=== PATIENT | male | born 1945 | race Caucasian/White ===

== ENCOUNTER 2018-07-17 23:42 | Emergency (ER) | payer MEDICARE, OTHER ==
[~2018-07-17] VITALS: Ht 170.2 cm; Wt 63.5 kg
[~2018-07-17 23:42] MED LIST: ACETAMINOPHEN500 M1 PO; BAYER CHEWABLE81 MG PO; FISH OIL 1,2001 CA1 PO; FLOMAX0.4 MG PO; LISINOPRIL5 MG PO; MOBIC7.5 MG PO; MULTI-DAY VITAM1 TAB PO; SAW PALMETTO450 MG PO; VITAMIN E400 UNI2 PO; ZOLOFT50 MG PO; iron PO
[2018-07-17 23:45] VITALS: Ht 170.2 cm; Wt 63.5 kg
[2018-07-18 00:21] LABS: BASOPHILS 0.1 % (0-2); EOSINOPHILS 5.5 % (0-7); HEMATOCRIT 35.6 % (42.0-54.0); HEMOGLOBIN 12.1 g/dL (13.5-17.5); IMMATURE GRANULOCYTES 0.4 % (0-5); LYMPHOCYTES 23.5 % (15-50); MCH 29.3 pg (26.0-34.0); MCV 86.2 fL (80.0-100.0); MEAN PLATELET VOLUME 9.4 fL (7.4-10.4); MONOCYTES 8.1 % (2-11); NEUTROPHILS 62.4 % (40-80); PLATELET COUNT 244 10x3/uL (130-400); RBC 4.13 10x6/uL (4.20-6.10); RDW 12.9 % (11.5-14.5); WBC 7.5 10x3/uL (4.8-10.8)
[2018-07-18 00:27] LABS: AMORPHOUS SEDIMENT <1+ /lpf (NONE SEEN); APPEARANCE CLOUDY (CLEAR); BACTERIA MODERATE /hpf (NONE SEEN); BILIRUBIN NEGATIVE (NEGATIVE); COLOR YELLOW (YELLOW); EPITHELIAL CELLS NSEEN /hpf (0-5); GLUCOSE NEGATIVE (NEGATIVE); KETONE NEGATIVE (NEGATIVE); NITRITE POSITIVE (NEGATIVE); PROTEIN 1+ mg/dL (NEGATIVE); RED CELLS - URINE 25-50 /hpf (0-5); UROBILINOGEN NORMAL (NORMAL)
[2018-07-18 00:29] LABS: CALC OSMOLALITY 266 mosm/kg (275-300); CALCIUM 8.8 mg/dL (8.5-10.1); CARBON DIOXIDE 25.8 mmol/L (21.0-32.0); CHLORIDE - SERUM 99 mmol/L (98-107); CREATININE - SERUM 0.6 mg/dL (0.6-1.3); GLUCOSE 113 mg/dL (74-106); POTASSIUM - SERUM 4.2 mmol/L (3.5-5.1); SODIUM 132 mmol/L (136-145); UREA NITROGEN 15 mg/dL (7-18); eGFR NON AFRICAN AMERICAN > 90 mL/min (90-120)
[2018-07-18] MEDS ORDERED: SULFAMETHOXAZOL1 TA3 PO (00:55)
[2018-07-18 02:23] VITALS: BP 118/77
== END 2018-07-18 02:25 ==
LOC: D.ER 23:42
PROVIDERS: Emergency Medicine
DX: T83.9XXA Unspecified complication of genitourinary prosthetic device, implant and graft, initial encounter (principal); N39.0 Urinary tract infection, site not specified

== ENCOUNTER 2019-04-16 06:51 | Inpatient (IN) | payer MEDICARE, OTHER ==
[~2019-04-16] VITALS: Ht 170.2 cm; Wt 68.3 kg
[~2019-04-16 06:51] MED LIST changes: +SULFAMETHOXAZOL1 TA3 PO
[2019-04-16 07:27] LABS: BASOPHILS 0.1 % (0-2); EOSINOPHILS 0.3 % (0-7); HEMATOCRIT 32.2 % (42.0-54.0); IMMATURE GRANULOCYTES 0.2 % (0-5); LYMPHOCYTES 7.4 % (15-50); MCH 29.3 pg (26.0-34.0); MCHC 34.2 g/dL (31.0-37.0); MCV 85.9 fL (80.0-100.0); MONOCYTES 5.2 % (2-11); NEUTROPHILS 86.8 % (40-80); PLATELET COUNT 214 10x3/uL (130-400); RBC 3.75 10x6/uL (4.20-6.10); RDW 13.4 % (11.5-14.5); WBC 11.8 10x3/uL (4.8-10.8)
[2019-04-16 07:34] LABS: CALC OSMOLALITY 259 mosm/kg (275-300); CALCIUM 8.3 mg/dL (8.5-10.1); CHLORIDE - SERUM 94 mmol/L (98-107); CREATININE - SERUM 0.6 mg/dL (0.6-1.3); GLUCOSE 117 mg/dL (74-106); POTASSIUM - SERUM 3.7 mmol/L (3.5-5.1); SODIUM 129 mmol/L (136-145); UREA NITROGEN 12 mg/dL (7-18); eGFR NON AFRICAN AMERICAN > 90 mL/min (90-120)
[2019-04-16 07:46] LABS: ALBUMIN 3.2 g/dL (3.4-5.0); ALKALINE PHOSPHATASE 54 U/L (46-116); ALT (SGPT) 12 U/L (10-68); AMYLASE - SERUM 28 U/L (25-115); BILIRUBIN - TOTAL 0.53 mg/dL (0.2-1.3); MAGNESIUM - SERUM 1.5 mg/dL (1.8-2.4); TROPONIN-I < 0.017 ng/mL (0.000-0.060)
[2019-04-16 07:52] LABS: LIPASE 38 U/L (73-393)
[2019-04-16 07:59] VITALS: BP 98/59
--- NOTE | 2019-04-16 09:55 | NUR ---
URINE SPECIMEN COLLECTED FROM SUPRAPUBIC CATHETER AND SENT TO LAB VIA TUBE SYSTEM.
[2019-04-16 10:00] VITALS: BP 99/59
--- NOTE | 2019-04-16 10:04 | NUR ---
PT'S [facility] NURSE, WALDEMAR RODRIGUEZ AT BEDSIDE. HER PHONE NUMBER IS [phone]
[2019-04-16 10:16] LABS: APPEARANCE CLOUDY (CLEAR); BILIRUBIN NEGATIVE (NEGATIVE); COLOR YELLOW (YELLOW); GLUCOSE NEGATIVE (NEGATIVE); KETONE SMALL mg/dL (NEGATIVE); NITRITE POSITIVE (NEGATIVE); PROTEIN 1+ mg/dL (NEGATIVE); UROBILINOGEN NORMAL (NORMAL); WHITE CELLS - URINE 25-50 /hpf (NEGATIVE)
[2019-04-16 10:18] LABS: BACTERIA MANY /hpf (NEGATIVE); EPITHELIAL CELLS 0-5 /hpf (0-5); MUCUS <1+ /lpf (NONE SEEN)
--- NOTE | 2019-04-16 10:30 | NUR ---
SPOKE WITH PT'S NURSE, DURGA SURESH, AND UPDATED ON PT POC.
--- NOTE | 2019-04-16 11:37 | NUR ---
SPOKE WITH PT'S HOSPICE NURSE AND UPDATED ON POC. SHE WAS INFORMED PT WILL BE ADMITTED TO HOSPITAL.
--- NOTE | 2019-04-16 13:00 | NUR ---
NEW PATIENT ADMIT FROM ER VIA STRETCHER ACCOMPANIED BY HOSPITAL PERSONNEL. PATIENT TRANSFERRED TO HOSPITAL BED WITH ASSISTANCE. PATIENT IS AWAKE, ALERT AND ORIENTED X 4. PATIENT DENIES ANY PAIN OR NEEDS. 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 PATIENT IS BEDFAST. PATIENT HAS SUPR PUBIC CATHETER INTACT WITH CLEAR, GOLD URINE. 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 WILL CONTINUE WITH PLAN OF CARE. SR UP X 2 BED IN LOW POSITION AND CALL 8T IN REACH.
--- NOTE | 2019-04-16 14:05 | MORECARE ---
CASE MANAGEMENT DISCHARGE SUMMARY PATIENT: JESI BONILLA UNIT: [id number] ADM DATE: 04/16/19 AGE: 74 : 43 SEX: M ROOM/BED: D.9682 AUTHOR: CARMEN,DOC PHYSICIAN: REFERRING PHYSICIAN: KASSANDRA TORRE MD DATE OF SERVICE: 04/16/19 Discharge Plan Patient Name: JESI BONILLA Facility: [facility]:[place] : 1945 Planned Disposition: Longterm Facility Anticipated Discharge Date: 04/18/19 Discharge Date: Expected LOS: 2 Initial Reviewer: [email or web address] Initial Review Date: 04/16/2019 Generated: 04/16/19 3:04 pm DCP- Discharge Planning Updated by [email or web address]: Karen Cervantes on 04/16/19 1:[address] DC PLAN: Return to jail care at [facility]. ANTICIPATED DC NEEDS: Denied known dc needs. CM met with patient and his to complete initial dc planning assessment. CM educated patient on the CM role and verbal consent given by patient to complete assessment. Patient is a resident at [facility]. He will return to the facility at time of discharge. Patient agrees this is a safe discharge plan. Transportation provider at discharge will be arranged by [facility]. He is only able to sit up in a Alta Chair. He requires a ramez lift to get from bed to alta chair. CM will continue to follow and will assist as needed with dc plans/needs. Karen Cervantes RN, [facility] DCPIA - Discharge Planning Initial Assessment Updated by [email or web address]: Karen Cervantes on 04/16/19 1:59 pm * Is the patient Alert and Oriented? Yes * How many steps to enter\exit or inside your home? None * PCP [facility] * Pharmacy [facility] * Preadmission Environment [facility] * Facility Name [facility] * ADLs Total Dependent * Equipment Ramez Lift * Other Equipment Alta Chair * List name and contact numbers for known caregivers / representatives who currently or will assist patient after discharge: Savannah Bonilla - [facility] - [phone] * Verbal permission to speak to the caregivers and representatives has been obtained from the patient. Yes * Additional services required to return to the preadmission environment? No * Can the patient safely return to the preadmission environment? Yes * Has this patient been hospitalized within the prior 30 days at any hospital? No Patient Name: JESI BONILLA Page [id number] at 1405 All edits/amendments must be made on the electronic document DICTATION DATE: 04/16/191403 CATTLE TRADER: JENNI 04/16/191403 RPT#: [id number] DC DATE: STATUS: ADM IN [facility] [address] [place] [address] END OF REPORT
[2019-04-16 15:13] VITALS: BP 106/74; Ht 170.2 cm; Wt 68.3 kg
[2019-04-16 15:38] VITALS: BP 84/54
--- NOTE | 2019-04-16 15:43 | NUR ---
PAGED AND SPOKE WITH DR TORRE. INFORMED DR OF SUPRA PUBIC CATHETER LEAKING AT SITE. NEW ORDERS RECEIVED TO CONSULT UROLOGY. REPORTED LOW BP . NEW ORDER RECEIVED. PATIENT DENIES ANY PAIN OR NEEDS. WILL CONTINUE TO MONITOR. SR UP X 2 BED IN LOW POSITION AND CALL LIGHT IN REACH.
--- NOTE | 2019-04-16 16:24 | NUR ---
DR STONE IN ROOM. SUPRA PUBIC CATHETER CHANGED . PATIENT TOLERATED WELL. PATIENT DID URINATE THRU PENIS WELL. PATIENT CLEANED, PENNY CARE PERFORMED AND LINENS CHANGED. WILL CONTINUE WITH PLAN OF CARE. SR UP X 2 BED IN LOW POSITION AND CALL LIGHT IN REACH.
--- NOTE | 2019-04-16 18:21 | NUR ---
ASSISTED PATIENT WITH MEAL. PATIENT CONSUMED 80%. PATIENT IS UNCHANGED AND DENIES ANY NEEDS OR PAIN. WILL CONTINUE TO MONITOR. SR UP X 2 BED IN LOW POSITION AND CALL LIGHT IN REACH.
[2019-04-16 20:30] VITALS: BP 97/74
--- NOTE | 2019-04-16 21:37 | NUR ---
BED LOW AND LOCKED CALL LIGHT POSITIONED WHERE PT CAN USE NO NEEDS AT THIS TIME
--- NOTE | 2019-04-17 03:21 | NUR ---
I have reviewed this patient and I concur with the Shift Assessment completed by the Licensed Practical Nurse today this shift.
[2019-04-17 04:30] VITALS: BP 122/85
--- NOTE | 2019-04-17 07:10 | NUR ---
PATIENT LAYING IN BED ON BACK WITH EYES CLOSED AND BREATHING EVENLY. VSS. WILL CONTINUE WITH PLAN OF CARE. SR UP X 2 BED IN LOW POSITION AND CALL LIGHT IN REACH.
[2019-04-17 08:00] VITALS: BP 117/78
--- NOTE | 2019-04-17 08:36 | MORECARE ---
CASE MANAGEMENT DISCHARGE SUMMARY PATIENT: JESI BONILLA UNIT: [id number] ADM DATE: 04/16/19 AGE: 74 : 43 SEX: M ROOM/BED: D.8702 AUTHOR: CARMEN,DOC PHYSICIAN: REFERRING PHYSICIAN: KASSANDRA TORRE MD DATE OF SERVICE: 04/17/19 Discharge Plan Patient Name: JSEI BONILLA Facility: [facility]:[place] : 1945 Planned Disposition: Nursing Facility [facility] Cert Anticipated Discharge Date: 04/18/19 Discharge Date: Expected LOS: 2 Initial Reviewer: [email or web address] Initial Review Date: 04/16/2019 Generated: 04/17/19 9:36 am DCP- Discharge Planning Updated by [email or web address]: Karen Cervantes on 04/16/19 1:[address] DC PLAN: Return to jail care at [facility]. ANTICIPATED DC NEEDS: Denied known dc needs. CM met with patient and his to complete initial dc planning assessment. CM educated patient on the CM role and verbal consent given by patient to complete assessment. Patient is a resident at [facility]. He will return to the facility at time of discharge. Patient agrees this is a safe discharge plan. Transportation provider at discharge will be arranged by [place]. He is only able to sit up in a Alta Chair. He requires a ramez lift to get from bed to alta chair. CM will continue to follow and will assist as needed with dc plans/needs. Karen Cervantes RN, [facility] DCPIA - Discharge Planning Initial Assessment Updated by [email or web address]: Karen Cervantes on 04/16/19 1:59 pm * Is the patient Alert and Oriented? Yes * How many steps to enter\exit or inside your home? None * PCP [facility] * Pharmacy [facility] * Preadmission Environment [facility] * Facility Name [facility] * ADLs Total Dependent * Equipment Ramez Lift * Other Equipment Alta Chair * List name and contact numbers for known caregivers / representatives who currently or will assist patient after discharge: Savannah Bonilla - [facility] - [phone] * Verbal permission to speak to the caregivers and representatives has been obtained from the patient. Yes * Additional services required to return to the preadmission environment? No * Can the patient safely return to the preadmission environment? Yes * Has this patient been hospitalized within the prior 30 days at any hospital? No Last DP export: 04/16/19 1:05 p Patient Name: JESI BONILLA Page [id number] at 0836 All edits/amendments must be made on the electronic document DICTATION DATE: 04/17/19835 CHEMICAL PROJECT ENGINEER: JENNI 04/17/19835 RPT#: [id number] DC DATE: STATUS: ADM IN [facility] [address] [place] [address] END OF REPORT
[2019-04-17 09:08] LABS: BASOPHILS 0.1 % (0-2); EOSINOPHILS 4.2 % (0-7); HEMOGLOBIN 11.4 g/dL (13.5-17.5); IMMATURE GRANULOCYTES 0.4 % (0-5); LYMPHOCYTES 14.6 % (15-50); MCH 29.2 pg (26.0-34.0); MCHC 33.5 g/dL (31.0-37.0); MEAN PLATELET VOLUME 9.1 fL (7.4-10.4); MONOCYTES 5.6 % (2-11); NEUTROPHILS 75.1 % (40-80); PLATELET COUNT 212 10x3/uL (130-400); RBC 3.91 10x6/uL (4.20-6.10); RDW 13.6 % (11.5-14.5)
[2019-04-17 09:11] LABS: WBC 8.3 10x3/uL (4.8-10.8)
[2019-04-17 09:27] LABS: CALC OSMOLALITY 261 mosm/kg (275-300); CALCIUM 8.2 mg/dL (8.5-10.1); CARBON DIOXIDE 28.2 mmol/L (21.0-32.0); CHLORIDE - SERUM 96 mmol/L (98-107); CREATININE - SERUM 0.7 mg/dL (0.6-1.3); GLUCOSE 144 mg/dL (74-106); MAGNESIUM - SERUM 1.5 mg/dL (1.8-2.4); PHOSPHOROUS 1.8 mg/dL (2.5-4.9); POTASSIUM - SERUM 3.6 mmol/L (3.5-5.1); SODIUM 130 mmol/L (136-145); eGFR NON AFRICAN AMERICAN > 90 mL/min (90-120)
[2019-04-17 09:28] LABS: UREA NITROGEN 7 mg/dL (7-18)
[2019-04-17 12:00] VITALS: BP 130/85
--- NOTE | 2019-04-17 13:32 | NUR ---
PATIENT LAYING IN BED WITH HOB ELEVATED 30 DEGREES. PATIENT WATCHING TV. PATIENT DENIES ANY NEEDS OR PAIN. PATIENT IS STABLE AND VSS. WILL CONTINUE TO MONITOR. SR UPX 2 BED IN LOW POSITION AND CALL LIGHT IN REACH.
[2019-04-17 16:00] VITALS: BP 139/62
--- NOTE | 2019-04-17 16:09 | NUR ---
PATIENT LAYING IN BED ON BACK AWAKE, ALERT AND ORIENTED X 4. PATIENT WATCHING TV. PATIENT DENIES ANY NEEDS OR PAIN. WILL CONTINUE TO MONITOR. SR UP X 2 BED IN LOW POSITION AND CALL LIGHT IN REACH.
[2019-04-17 20:00] VITALS: BP 115/68
--- NOTE | 2019-04-17 20:32 | NUR ---
REPORT AND INITIAL ROUNDS COMPLETED. PT RESTING IN BED. NO DISTRESS. CPOC.
--- NOTE | 2019-04-17 21:09 | NUR ---
BEDTIME MEDS GIVEN. IVF INFUSING. PT WATCHING TV. CALL LIGHT IN HAND.
[2019-04-18] VITALS: BP 141/91
--- NOTE | 2019-04-18 02:37 | NUR ---
REQUESTED PAIN PILL PROVIDED FOR DISCOMFORT TO LEFT LEG. PT REPOSITIONED. WATER PROVIDED. ASSISTED TO TURN ON TV AND "GET COMFORTABLE". CPOC. CALL LIGHT IN HAND.
[2019-04-18 04:00] VITALS: BP 131/76
[2019-04-18 08:00] VITALS: BP 160/100
--- NOTE | 2019-04-18 09:05 | NUR ---
ALERT AND ORIENTED. NS AT 125 RIGHT HAND,. NO TELEMERTY CONTRACTURES TO BOTH LEGS AND LEFT ARM. PT HAS A COLOSTOMY AND SUPRA PUBIC. DENIES ANY NEEDS. WILL MONITOR
[2019-04-18] MEDS ORDERED: ROCEPHIN 1 GM/D51 G1 IM (15:05)
[2019-04-18] MEDS ORDERED: CARAFATE1 G PO (15:06)
[2019-04-18] MEDS ORDERED: PROTONIX40 MG PO (15:06)
--- NOTE | 2019-04-18 16:45 | NUR ---
PT DISCHARGED. IV DCD WITH TIP INTACT. TO [facility] FROM DC IN [facility].
--- NOTE | 2019-04-18 17:24 | MORECARE ---
CASE MANAGEMENT DISCHARGE SUMMARY PATIENT: JESI BONILLA UNIT: [id number] ADM DATE: 04/16/19 AGE: 74 : 43 SEX: M ROOM/BED: D.7412 AUTHOR: CARMEN,DOC PHYSICIAN: REFERRING PHYSICIAN: KASSANDRA TORRE MD DATE OF SERVICE: 04/18/19 Discharge Plan Patient Name: JESI BONILLA Facility: [facility]:[place] : 1945 Planned Disposition: Nursing Facility [facility] Cert Anticipated Discharge Date: 04/18/19 Discharge Date: 04/18/2019 Expected LOS: 2 Initial Reviewer: [email or web address] Initial Review Date: 04/16/2019 Generated: 04/18/19 6:24 pm Comments DCP- Discharge Planning Updated by [email or web address]: Oumou Driscoll on 04/18/19 4:[address] DC PLAN: Return to skilled nursing care at [facility]. ANTICIPATED DC NEEDS: Denied known dc needs. CM met with patient and his to complete initial dc planning assessment. CM educated patient on the CM role and verbal consent given by patient to complete assessment. Patient is a resident at [facility]. He will return to the facility at time of discharge. Patient agrees this is a safe discharge plan. Transportation provider at discharge will be arranged by [facility]. He is only able to sit up in a Alta Chair. He requires a ramez lift to get from bed to atla chair. CM will continue to follow and will assist as needed with dc plans/needs. Karen Cervantes RN, [facility] DCPIA - Discharge Planning Initial Assessment Updated by [email or web address]: Karen Cervantes on 04/16/19 1:59 pm * Is the patient Alert and Oriented? Yes * How many steps to enter\exit or inside your home? None * PCP [facility] * Pharmacy [facility] * Preadmission Environment Translation Director [facility] * Facility Name [facility] * ADLs Total Dependent * Equipment Ramez Lift * Other Equipment Alta Chair * List name and contact numbers for known caregivers / representatives who currently or will assist patient after discharge: Savannah Bonilla - spouse - [phone] * Verbal permission to speak to the caregivers and representatives has been obtained from the patient. Yes * Additional services required to return to the preadmission environment? No * Can the patient safely return to the preadmission environment? Yes * Has this patient been hospitalized within the prior 30 days at any hospital? No Last DP export: 04/17/19 7:36 a Patient Name: JESI BONILLA Page 49711 at 1724 All edits/amendments must be made on the electronic document DICTATION DATE: 04/18/191723 PELLETIZER OPERATOR: JENNI 04/18/191723 RPT#: [id number] DC DATE:04/18/19 STATUS: DIS IN [facility] [address] [place] [address] END OF REPORT
--- NOTE | 2019-04-18 17:31 | MORECARE ---
CASE MANAGEMENT DISCHARGE SUMMARY PATIENT: JESI BONILLA UNIT: [id number] ADM DATE: 04/16/19 AGE: 74 : 43 SEX: M ROOM/BED: D.6500 AUTHOR: CARMENDOC PHYSICIAN: REFERRING PHYSICIAN: KASSANDRA TORRE MD DATE OF SERVICE: 04/18/19 Discharge Plan Patient Name: JESI BONILLA Facility: [facility]:[place] : 1945 Planned Disposition: Nursing Facility [facility] Cert Anticipated Discharge Date: 04/18/19 Discharge Date: 04/18/2019 Expected LOS: 2 Initial Reviewer: [email or web address] Initial Review Date: 04/16/2019 Generated: 04/18/19 6:31 pm Comments DCP- Discharge Planning Updated by [email or web address]: Oumou Driscoll on 04/18/19 4:[address] CM received an order for DC to [facility]. JESÚS contacted Gena with the facility, notified her of the DC order. Gena states the patient will return to [place] with Hospice care provided by [facility], as prior to arrival. [facility] will transport patient to the facility. Patient's nurse is to call report to Gena. The above, plus telephone number has been supplied to the patient's nurse for report. No other needs at this time. DCP- Discharge Planning Updated by [email or web address]: Oumou Driscoll on 04/18/19 4:[address] DC PLAN: Return to fpc care at [facility]. ANTICIPATED DC NEEDS: Denied known dc needs. CM met with patient and his to complete initial dc planning assessment. CM educated patient on the CM role and verbal consent given by patient to complete assessment. Patient is a resident at [facility]. He will return to the facility at time of discharge. Patient agrees this is a safe discharge plan. Transportation provider at discharge will be arranged by [place]. He is only able to sit up in a Alta Chair. He requires a ramez lift to get from bed to alta chair. CM will continue to follow and will assist as needed with dc plans/needs. Karen Cervantes RN, [facility] DCPIA - Discharge Planning Initial Assessment Updated by [email or web address]: Karen Cervantes on 04/16/19 1:59 pm * Is the patient Alert and Oriented? Yes * How many steps to enter\exit or inside your home? None * PCP [facility] * Pharmacy [facility] * Preadmission Environment Cost Accountant [facility] * Facility Name [facility] * ADLs Total Dependent * Equipment Ramez Lift * Other Equipment Alta Chair * List name and contact numbers for known caregivers / representatives who currently or will assist patient after discharge: Savannah Bonilla - [facility] - [phone] * Verbal permission to speak to the caregivers and representatives has been obtained from the patient. Yes * Additional services required to return to the preadmission environment? No * Can the patient safely return to the preadmission environment? Yes * Has this patient been hospitalized within the prior 30 days at any hospital? No Last DP export: 04/18/19 4:24 p Patient Name: JESI BONILLA Page [id number] at 1731 All edits/amendments must be made on the electronic document DICTATION DATE: 04/18/191730 AIRCRAFT ENGINE MECHANIC OVERHAUL: JENNI 04/18/191730 RPT#: [id number] DC DATE:04/18/19 STATUS: DIS IN [facility] [address] [place] [address] END OF REPORT
--- NOTE | 2019-04-20 09:07 | MORECARE ---
CASE MANAGEMENT DISCHARGE SUMMARY PATIENT: JESI BONILLA UNIT: [id number] ADM DATE: 04/16/19 AGE: 74 : 43 SEX: M ROOM/BED: D.0692 AUTHOR: CARMENDOC PHYSICIAN: REFERRING PHYSICIAN: KASSANDRA TORRE MD DATE OF SERVICE: 04/20/19 Discharge Plan Patient Name: JESI BONILLA Facility: [facility]:[place] : 1945 Planned Disposition: Nursing Facility [facility] Cert Anticipated Discharge Date: 04/18/19 Discharge Date: 04/18/2019 Expected LOS: 2 Initial Reviewer: [email or web address] Initial Review Date: 04/16/2019 Generated: 04/20/19 10:06 am Comments DCP- Discharge Planning Updated by [email or web address]: Oumou Driscoll on 04/18/19 4:[address] CM received an order for DC to [facility]. JESÚS contacted Gena with the facility, notified her of the DC order. Gena states the patient will return to [place] with Hospice care provided by [facility], as prior to arrival. [facility] will transport patient to the facility. Patient's nurse is to call report to Gena. The above, plus telephone number has been supplied to the patient's nurse for report. No other needs at this time. DCP- Discharge Planning Updated by [email or web address]: Oumou Driscoll on 04/18/19 4:[address] DC PLAN: Return to longterm care at [facility]. ANTICIPATED DC NEEDS: Denied known dc needs. CM met with patient and his to complete initial dc planning assessment. CM educated patient on the CM role and verbal consent given by patient to complete assessment. Patient is a resident at [facility]. He will return to the facility at time of discharge. Patient agrees this is a safe discharge plan. Transportation provider at discharge will be arranged by [place]. He is only able to sit up in a Alta Chair. He requires a ramez lift to get from bed to alta chair. CM will continue to follow and will assist as needed with dc plans/needs. Karen Cervantes RN, [facility] DCPIA - Discharge Planning Initial Assessment Updated by [email or web address]: Karen Cervantes on 04/16/19 1:59 pm * Is the patient Alert and Oriented? Yes * How many steps to enter\exit or inside your home? None * PCP [facility] * Pharmacy [facility] * Preadmission Environment Account Management Assistant [facility] * Facility Name [facility] * ADLs Total Dependent * Equipment Ramez Lift * Other Equipment Alta Chair * List name and contact numbers for known caregivers / representatives who currently or will assist patient after discharge: Savannah Bonilla - [facility] - [phone] * Verbal permission to speak to the caregivers and representatives has been obtained from the patient. Yes * Additional services required to return to the preadmission environment? No * Can the patient safely return to the preadmission environment? Yes * Has this patient been hospitalized within the prior 30 days at any hospital? No Last DP export: 04/18/19 4:31 p Patient Name: JESI BONILLA Page [id number] at 0907 All edits/amendments must be made on the electronic document DICTATION DATE: 04/20/19905 STATISTICAL FINANCIAL ANALYST: JENNI 04/20/19905 RPT#: [id number] DC DATE:04/18/19 STATUS: DIS IN [facility] [address] [place] [address] END OF REPORT
== END 2019-04-18 16:51 | disposition home health service (06) | DRG 699 ==
LOC: D.ER 06:51 → D.M2 11:06 → D.SDCHOLD 14:07 → D.M2 04-18 16:51
PROVIDERS: Emergency Medicine; ADMIT Family Medicine; ATTEND Family Medicine
PROC: 0T2BX0Z Change Drainage Device in Bladder, External Approach (ICD-10-PCS; principal; 2019-04-16)
DX: T83.510A Infection and inflammatory reaction due to cystostomy catheter, initial encounter (principal); N39.0 Urinary tract infection, site not specified; G80.2 Spastic hemiplegic cerebral palsy; I69.359 Hemiplegia and hemiparesis following cerebral infarction affecting unspecified side; Y84.6 Urinary catheterization as the cause of abnormal reaction of the patient, or of later complication, without mention of misadventure at the time of the procedure; D50.8 Other iron deficiency anemias; I10 Essential (primary) hypertension; F34.1 Dysthymic disorder; K21.9 Gastro-esophageal reflux disease without esophagitis; K58.1 Irritable bowel syndrome with constipation; N40.0 Benign prostatic hyperplasia without lower urinary tract symptoms; E55.9 Vitamin D deficiency, unspecified; E78.2 Mixed hyperlipidemia; M19.91 Primary osteoarthritis, unspecified site

== ENCOUNTER → 2020-09-02 17:08 | Outpatient (CLI) | payer MEDICARE, OTHER ==
[2019-04-16 15:13] VITALS: BMI 23.5
[~2020-09-02 17:08] MED LIST changes: +CARAFATE1 G PO; +PROTONIX40 MG PO; +ROCEPHIN 1 GM/D51 G1 IM
[2020-09-02 19:36] LABS: BACTERIA MOD HPF (<MOD); BILIRUBIN NEGATIVE (NEGATIVE); KETONE NEGATIVE mg/dL (< 1+); NITRITE POSITIVE (NEGATIVE); PH 7.5 (5.0-8.0); SQUAMOUS EPITHELIAL 1 HPF (0-4); UROBILINOGEN NORMAL mg/dL (< 2); WHITE CELLS - URINE 39 HPF (0-1)
== END | disposition home or self-care (01) ==
LOC: D.LABREF 17:08
PROVIDERS: ATTEND Family Medicine
DX: R45.1 Restlessness and agitation (principal)

== ENCOUNTER → 2020-09-13 20:31 | Outpatient (CLI) | payer MEDICARE, OTHER ==
[2019-04-16 15:13] VITALS: BMI 23.5
[2020-09-13 21:01] LABS: BACTERIA FEW HPF (<MOD); BILIRUBIN NEGATIVE (NEGATIVE); KETONE NEGATIVE mg/dL (< 1+); NITRITE POSITIVE (NEGATIVE); PH 6.5 (5.0-8.0); SQUAMOUS EPITHELIAL 2 HPF (0-4); UROBILINOGEN NORMAL mg/dL (< 2); WHITE CELLS - URINE >182 HPF (0-1)
== END | disposition home or self-care (01) ==
LOC: D.LABREF 20:31
PROVIDERS: ATTEND Family Medicine
DX: M86.9 Osteomyelitis, unspecified (principal); Z79.2 Long term (current) use of antibiotics; R33.9 Retention of urine, unspecified